=== PATIENT | female | born 1965 | race Caucasian/White ===

== ENCOUNTER 2016-10-12 20:41 | Emergency (ER) | payer OTHER | END 2016-10-12 22:00 | disposition home or self-care (01) | LOC: ER 20:41 | DX: B02.9 Zoster without complications (principal); H00.012 Hordeolum externum right lower eyelid; Z90.49 Acquired absence of other specified parts of digestive tract; Z90.710 Acquired absence of both cervix and uterus; Z79.82 Long term (current) use of aspirin ==